=== PATIENT | male | born 1985 | race Caucasian/White ===

== ENCOUNTER 2016-06-03 21:24 | Emergency (ER) | payer MEDICAID ==
[2016-06-03] MEDS ORDERED: SODIUM CHLORIDE 0.9% 1,000 ML IV ONE (21:53)
[2016-06-03] MEDS ORDERED: METOCLOPRAMIDE 10 MG/2 ML VIAL IVP STA (21:53)
[2016-06-03] MEDS ORDERED: diphenhydrAMINE INJ 50 MG/ML VIAL IVP STA (21:53)
[2016-06-03] MEDS ORDERED: KETOROLAC 60 MG/2 ML VIAL IVP STA (21:53)
[2016-06-03] MEDS ORDERED: KETOROLAC 30 MG/ML VIAL ONE (21:55)
[2016-06-03] MEDS ORDERED: diphenhydrAMINE INJ 50 MG/ML VIAL ONE (21:55)
[2016-06-03] MEDS ORDERED: METOCLOPRAMIDE 10 MG/2 ML VIAL IVP ONE (21:55)
[2016-06-03] MEDS ORDERED: ONDANSETRON 4 MG/2 ML VIAL IVP STA (22:10)
[2016-06-03] MEDS ORDERED: ONDANSETRON 4 MG/2 ML VIAL ONE (22:10)
[2016-06-03] MEDS ORDERED: HYDROmorphone 1 MG/ML SYRINGE IVP STA (23:06)
[2016-06-03] MEDS ORDERED: HYDROmorphone 1 MG/ML SYRINGE ONE (23:08)
== END 2016-06-04 | disposition home or self-care (01) ==
DX: G43.909 Migraine, unspecified, not intractable, without status migrainosus (principal); F17.200 Nicotine dependence, unspecified, uncomplicated; Z79.891 Long term (current) use of opiate analgesic; Z79.899 Other long term (current) drug therapy
CPT/HCPCS: 96374; 96375; 99284; J1170

== ENCOUNTER 2016-09-30 20:59 | Emergency (ER) | payer MEDICAID ==
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
[2016-09-30] MEDS ORDERED: oxyCOD/ACETAMIN 5 MG/325 MG TABLET PO STA (23:10)
[2016-09-30] MEDS ORDERED: oxyCOD/ACETAMIN 5 MG/325 MG TABLET PO ONE (23:24)
--- NOTE | 2016-09-30 23:53 | XRAY Preliminary Report ---
Exam: XR Chest 2 View PA/LAT IMPRESSION: Normal 2-view chest radiography. [facility] SITE ID: [id number]
--- NOTE | 2016-09-30 23:55 | XRAY Preliminary Report ---
Exam: XR Lumbar Spine 2 View IMPRESSION: 1. No acute lumbar vertebral abnormality. 2. Equivocal nondisplaced left 12th rib costovertebral junction fracture. Please correlate focal tend erness over this region. [facility] SITE ID: [id number]
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
[2016-10-01] MEDS ORDERED: oxyCODONE/ACET 5/325 Prepack 4 PO STA (00:12)
[2016-10-01] MEDS ORDERED: oxyCODONE/ACET 5/325 Prepack 4 PO ONE (00:20)
[2016-10-01 00:33] VITALS: BP 141/83
== END 2016-10-01 00:31 | disposition home or self-care (01) ==
LOC: ED 20:59
DX: S39.92XA Unspecified injury of lower back, initial encounter (principal); S20.311A Abrasion of right front wall of thorax, initial encounter; S40.811A Abrasion of right upper arm, initial encounter; V94.0XXA Hitting object or bottom of body of water due to fall from watercraft, initial encounter; Y93.89 Activity, other specified; M62.838 Other muscle spasm; F17.200 Nicotine dependence, unspecified, uncomplicated
CPT/HCPCS: 71020; 72100; 99283; A9270

== ENCOUNTER 2016-10-03 15:19 | Emergency (ER) | payer MEDICAID ==
[2016-10-03 15:27] VITALS: BP 159/104
--- NOTE | 2016-10-03 16:56 | ED Physician Documentation ---
PD HPI TRUNK INJURY - Stated complaint Stated Complaint: BACK/SIDE PX - Chief complaint Chief Complaint: Back Pain - History obtained from History obtained from: Patient - History of Present Illness Location: Right chest Type of injury: Fall (fell several feet and struck right chest wall and armpit area. Seen in ED that day (09/30/16 and had xrays showing possible rib fx 12th on right. Otherwise normal lung. He is still having pain in area with movement and arm lifting, deep breathing. Pain meds help but he hoped to be getting better and only with couple pills left. The Rx was for small amount of pain meds.) Timing - onset: How many days ago (3) Timing - duration: Days (3) Timing - details: Abrupt onset, Still present Quality: Pain, Sharp, Aching, Other Improved by: Rest Worsened by: Moving, Palpating, Other (lifting right shoulder/arm) Associated symtptoms: No: Weakness, Numbness Similar symptoms before: Has not had sx before Recently seen: Emergency Dept (3 days ago) Review of Systems Constitutional: denies: Fever, Chills Nose: denies: Rhinorrhea / runny nose, Congestion Throat: denies: Sore throat Cardiac: reports: Chest pain / pressure. denies: Palpitations, Pedal edema, Calf pain Respiratory: denies: Dyspnea, Cough, Wheezing GI: denies: Abdominal Pain, Nausea, Vomiting Skin: denies: Rash, Lesions, Abrasion (s) Musculoskeletal: denies: Neck pain, Back pain Neurologic: denies: Focal weakness, Numbness, Headache, Head injury PD PAST MEDICAL HISTORY - Past Medical History Cardiovascular: None Respiratory: None Neuro: Headache/migraine Endocrine/Autoimmune: None GI: None : None HEENT: None Psych: None Musculoskeletal: None Derm: None - Past Surgical History Past Surgical History: Yes General: Appendectomy - Present Medications Home Medications: Ambulatory Orders Medication Instructions Recorded Confirmed Cyclobenzaprine [Flexeril] 10 mg PO TID PRN #20 tablet 07/28/15 Ibuprofen 800 mg PO Q6HR PRN #20 tablet 07/28/15 10/03/16 oxyCODONE/ACET 5/325 [Percocet 5 1 - 2 each PO Q6H PRN #20 tablet 07/28/15 mg/325 mg] Cyclobenzaprine [Flexeril] 10 mg PO TID PRN #20 tablet 10/01/16 10/03/16 oxyCODONE/ACET 5/325 [Percocet 5 2 each PO Q6H PRN #14 tablet 10/01/16 10/03/16 mg/325 mg] Methocarbamol [Robaxin] 500 mg PO Q6H PRN #25 tablet 10/03/16 Oxycodone HCl/Acetaminophen 1 each PO Q6H PRN #25 tablet 10/03/16 [Percocet 10-325 mg Tablet] - Allergies Allergies/Adverse Reactions: Allergies Allergy/AdvReac Type Severity Reaction Status Date / Time No Known Drug Allergies Allergy Verified 09/30/16 21:18 - Social History Does the pt smoke?: Yes Smoking Status: Current every day smoker Does the pt drink ETOH?: No Does the pt have substance abuse?: No - Immunizations Immunizations are current?: Yes - POLST Patient has POLST: No PD ED PE NORMAL - Vitals Vital signs reviewed: Yes - General General: Alert and oriented X 3, Well developed/nourished - HEENT HEENT: Atraumatic, Pharynx benign, Dentition benign - Neck Neck: Supple, no meningeal sign, No bony TTP, No adenopathy - Cardiac Cardiac: RRR, No murmur - Respiratory Respiratory: No respiratory distress, Clear bilaterally, Other (right posterolateral lowest rib with tenderness but no crepitance. No abd tenderness. No CVA tenderness per se. ) - Abdomen Abdomen: Soft, Non tender - Back Back: No spinal TTP - Derm Derm: Normal color, Warm and dry - Extremities Extremities: Other (right axillary area with some linear contusion upper medial arm but good ROM. ) - Neuro Neuro: Alert and oriented X 3, No motor deficit, No sensory deficit Results - Vitals Vitals: Oxygen O2 Source Room air PD MEDICAL DECISION MAKING - ED course Complexity details: reviewed old records, reviewed results (prior films of ribs and lumbar showed possible T12 fracture in location he is hurting. ), considered differential (still with pain just several days from injury. Has couple pain meds left. Can add NSAID otc. He is not using FLexeril as makes him feel too tired and "loopy" (taking at bedtime). Can try Robaxin to see if not as much side effects so can use during day. ), d/w patient Departure - Departure Disposition: 01 Home, Self Care Clinical Impression: Injury resulting from fall from height Contusion, trunk Qualifiers: Encounter type: subsequent encounter Qualified Code(s): S20.20XD - Contusion of thorax, unspecified, subsequent encounter Rib fracture Qualifiers: Encounter type: subsequent encounter Rib fracture type: single rib Fracture type: closed Laterality: right Fracture healing: with routine healing Qualified Code(s): S22.31XD - Fracture of one rib, right side, subsequent encounter for fracture with routine healing Condition: Stable Record reviewed to determine appropriate education?: Yes Instructions: ED Contusion Vs Minor Fx Rib Prescriptions: Oxycodone HCl/Acetaminophen [Percocet 10-325 mg Tablet] 1 each PO Q6H PRN #25 tablet PRN Reason: Pain Methocarbamol [Robaxin] 500 mg PO Q6H PRN #25 tablet PRN Reason: Spasms Comments: Drink lots of fluids. Continue Ibuprofen 800 mg twice daily. Add Robaxin muscle relaxant during the day and continue the Flexeril at night (since it makes you so sleepy). Percocet every 4-6 hours as needed for pain - the new Rx is at a higher strength, so adjust to just one tablet at a time. The worst pain should improve over the first week, so you are part of the way there, should be improving over several days more. Discharge Date/Time: 10/03/16 17:27
== END 2016-10-03 17:27 | disposition home or self-care (01) ==
LOC: ED 15:19
DX: S20.20XD Contusion of thorax, unspecified, subsequent encounter (principal); S22.31XD Fracture of one rib, right side, subsequent encounter for fracture with routine healing; F17.209 Nicotine dependence, unspecified, with unspecified nicotine-induced disorders; W17.89XD Other fall from one level to another, subsequent encounter
CPT/HCPCS: 99283

== ENCOUNTER 2017-03-24 14:01 | Emergency (ER) | payer MEDICAID ==
[2017-03-24 14:08] VITALS: BP 195/124
[2017-03-24] MEDS ORDERED: POLYMYXIN B/TRIMETH OPHTH DROPS LEFTEYE STA (14:20)
--- NOTE | 2017-03-24 14:29 | ED Physician Documentation ---
PD HPI HEENT - Stated complaint Stated Complaint: COLD/EYE IRRITATION - Chief complaint Chief Complaint: General - History obtained from History obtained from: Patient, Family - History of Present Illness Timing - onset: Chronic Timing - details: Gradual onset, Still present Location: Sinuses Associated symptoms: Congestion. No: Fever Similar symptoms before: No diagnosis Recently seen: Not recently seen - Additional information Additional information: Patient is a 32 year old male who is presenting to the emergency department for congestion and pink eye. Patient states that for months he has had blocked sinuses. patient states that he broke his nose when he was younger but never had it fixed. Patient states that the reason he came in today is because his left eye was starting to get pink this morning. patient states that his girlfriend's six year old has been sick. Review of Systems Constitutional: denies: Fever, Chills Eyes: reports: Discharge, Irritation. denies: Decreased vision, Photophobia Ears: denies: Ear pain, Drainage/discharge Nose: reports: Congestion, Sinus pressure / pain Throat: denies: Sore throat Cardiac: denies: Chest pain / pressure Respiratory: denies: Cough GI: denies: Nausea, Vomiting : reports: Reviewed and negative Skin: reports: Reviewed and negative Musculoskeletal: reports: Reviewed and negative Immunocompromised: denies: Immunocompromised PD PAST MEDICAL HISTORY - Past Medical History Past Medical History: Yes Cardiovascular: None Respiratory: None Neuro: Headache/migraine Endocrine/Autoimmune: None GI: None : None HEENT: None Psych: None Musculoskeletal: None Derm: None - Past Surgical History Past Surgical History: Yes General: Appendectomy - Present Medications Home Medications: Ambulatory Orders Medication Instructions Recorded Confirmed No Known Home Medications [No 03/24/17 03/24/17 Known Home Medications] - Allergies Allergies/Adverse Reactions: Allergies Allergy/AdvReac Type Severity Reaction Status Date / Time No Known Drug Allergies Allergy Verified 03/24/17 14:08 - Social History Does the pt smoke?: Yes Smoking Status: Current every day smoker Does the pt drink ETOH?: No Does the pt have substance abuse?: No - Immunizations Immunizations are current?: Yes - POLST Patient has POLST: No PD ED PE NORMAL - Vitals Vital signs reviewed: Yes - General General: Alert and oriented X 3, No acute distress, Well developed/nourished - HEENT HEENT: Atraumatic, PERRL - Neck Neck: Supple, no meningeal sign - Cardiac Cardiac: RRR, No murmur - Respiratory Respiratory: No respiratory distress, Clear bilaterally - Abdomen Abdomen: Soft, Non tender, Non distended - Derm Derm: Normal color, Warm and dry, No rash - Neuro Neuro: Alert and oriented X 3, No motor deficit, No sensory deficit, Normal speech - Psych Psych: Normal mood PD ED PE EXPANDED - HEENT HEENT: Nasal congestion, Pharynx normal. No: Right frontal sinus TTP, Left frontal sinus TTP, Right maxillary sinus TTP, Left maxillary sinus TTP, Dry mucous membranes, Pharyngeal erythema, Swollen tonsils - Eyes Eyes: Left eye, Injected conj/sclera Results - Vitals Vitals: Vital Signs - 24 hr 03/24/17 14:06 Temperature 36.6 C Heart Rate 89 Respiratory 16 Rate Blood Pressure 195/124 H O2 Saturation 94 Oxygen O2 Source Room air PD MEDICAL DECISION MAKING - ED course Complexity details: reviewed old records, reviewed results, re-evaluated patient , considered differential, d/w patient ED course: Patient was seen and examined at bedside. patient was treated with polytrim for eye. Patient and family were given detailed discharge and follow up instructions. Patient required no further work up and was stable for discharge with outpatient follow up. Departure - Departure Disposition: 01 Home, Self Care Clinical Impression: Conjunctivitis due to adenovirus, left eye Condition: Good Instructions: Conjunctivitis Infec Cause Follow-Up: [facility] [Provider Group] - Tomorrow Comments: Your were treated with eye drops today for your conjunctivitis. You will need to use the drops 4 times a day for the next week. For the chronic sinusitis you should try using a neti pot or similar product. You should call [facility] to schedule a follow up appointment. It is important that you wash your hands and and avoid touching your eyes. Forms: Activity restrictions
== END 2017-03-24 14:43 | disposition home or self-care (01) ==
LOC: ED 14:01
DX: B30.1 Conjunctivitis due to adenovirus (principal); F17.200 Nicotine dependence, unspecified, uncomplicated
CPT/HCPCS: 99282; 99283; A9270